=== PATIENT | female | born 1965 | race Caucasian/White ===

== ENCOUNTER 2023-03-18 08:12 | Day surgery (SDC) | payer BC ==
[~2023-03-18] VITALS: Ht 154.9 cm; Wt 72.1 kg
[2023-03-18] VITALS (16 sets, daily range): BP systolic 89–146; BP diastolic 55–89
[~2023-03-18 08:12] MED LIST: CHLO25B PO; ESTROGEN CREAM TOP; PROG100 PO
--- NOTE | 2023-03-18 09:51 | NUR ---
KNEE HIGH KIRA HOSE AND CALF PAS APPLIED TO RLE. PATIENT GAVE HER [place] BANDS TO HER FOR SAFE KEEPING. EARINGS LEFT IN PER PATIENT REQEUST THEY DONT COME OUT EASILY. TAPE APPLIED OVER EARINGS FOR SAFETY.
--- NOTE | 2023-03-18 13:03 | NUR ---
ARRIVAL TO SURGICAL UNIT ALERT & PLEASANT. SPINAL WORKING WELL FOR PAIN; DENIES. CAN WIGGLE TOES & LIFT R LEG, L LEG WEAK. DENIES N/V, BUT ONLY INTERESTED IN WATER FOR NOW. SNACKS IN REACH. SPOUSE AT BEDSIDE. ATTENTIVE & LOVING.
[2023-03-18] MEDS ORDERED: ACET500 PO (16:18)
[2023-03-18] MEDS ORDERED: OXYC5 PO (16:18)
[2023-03-18] MEDS ORDERED: ASPI81CH PO (16:18)
--- NOTE | 2023-03-18 17:17 | NUR ---
ESCORTED OUT VIA WC.
== END 2023-03-18 17:17 | disposition home or self-care (01) ==
LOC: ORSCMMR 08:12 → ORD 10:00 → ORSCMMR 10:00 → SURS 12:38 → ORSCMMR 17:17
PROVIDERS: Orthopaedic Surgery
PROC: 0SRD0JA Replacement of Left Knee Joint with Synthetic Substitute, Uncemented, Open Approach (ICD-10-PCS; principal; 2023-03-18 10:00)
DX: M17.12 Unilateral primary osteoarthritis, left knee (principal); I10 Essential (primary) hypertension; Z79.899 Other long term (current) drug therapy
CPT/HCPCS: 73560-LT; 97110; 97116; 97161; A9270; C1713; C1776; J0171; J0690; J0735; J1885; J2405; J2704; J2795; J3010; J7120

== ENCOUNTER 2023-12-05 09:39 | Day surgery (SDC) | payer OTHER ==
[~2023-12-05] VITALS: Ht 157.5 cm; Wt 72.7 kg
[~2023-12-05 09:39] MED LIST changes: +ACET500 PO; +ASPI81CH PO; +Lactated Ringer's 1,000 ML IV ONE; +OXYC5 PO
[2023-12-05] MEDS ORDERED: Ondansetron HCl 2 MG / ML 2ML Vial ONE (10:02)
[2023-12-05] MEDS ORDERED: Dexamethasone Sod Phos 10 MG/ML 1ML VIAL ONE (10:02)
[2023-12-05] MEDS ORDERED: Ketorolac Tromethamine 30mg Vial ONE (10:02)
[2023-12-05] MEDS ORDERED: propofoL 20 ML IV ONE (10:03)
[2023-12-05] MEDS ORDERED: FentaNYL Citrate 50 MCG/ML 2 ML Injection ONE (10:03)
[2023-12-05] MEDS ORDERED: Lactated Ringer's 1,000 ML IV ONE (10:25)
[2023-12-05] MEDS ORDERED: CeFAZolin Sodium 2,000 MG VIAL ONE (10:26)
[2023-12-05] MEDS ORDERED: NS 50 ML IV ONE (10:26)
--- NOTE | 2023-12-05 12:11 | NUR ---
12/05/23 1211 Mariela Flood FLUID DEFICIT OF 95ML.
[2023-12-05 12:21] VITALS: BP 140/82
--- NOTE | 2023-12-05 12:21 | NUR ---
12/05/23 1220 Lanie Ayon PT. DENIES ANY PAIN. PT. VERBALIZES JUST FEELING DROWSY, TRYING TO WAKE UP.
--- NOTE | 2023-12-05 12:54 | NUR ---
12/05/23 1254 Jocelyn Moscoso PT TO BATHROOM TO VOID AT 1240 WITHOUT COMPLICATIONS. nO N/V WITH WATER CONSUMPTION
== END 2023-12-05 12:50 | disposition home or self-care (01) ==
LOC: ORSCSDS 09:39
PROVIDERS: Obstetrics & Gynecology
PROC: 0UDB8ZX Extraction of Endometrium, Via Natural or Artificial Opening Endoscopic, Diagnostic (ICD-10-PCS; principal; 2023-12-05 11:30)
DX: N95.0 Postmenopausal bleeding (principal); N84.0 Polyp of corpus uteri; I10 Essential (primary) hypertension; Z79.899 Other long term (current) drug therapy; Z96.652 Presence of left artificial knee joint
CPT/HCPCS: 88305; J0690; J1100; J1885; J2405; J2704; J3010; J7120